=== PATIENT | male | born 1980 | race African-American/Black ===

== ENCOUNTER 2017-04-18 04:41 | Emergency (ER) | payer OTHER ==
[~2017-04-18] VITALS: Ht 190.5 cm; Wt 84.1 kg
[2017-04-18] MEDS ORDERED: OXYC10 PO (04:46)
[2017-04-18 04:48] VITALS: BP 121/87
== END 2017-04-18 05:33 | disposition home or self-care (01) ==
LOC: EMS 04:42
DX: S40.811A Abrasion of right upper arm, initial encounter (principal); I10 Essential (primary) hypertension; F12.10 Cannabis abuse, uncomplicated; F17.210 Nicotine dependence, cigarettes, uncomplicated; V48.4XXA Person boarding or alighting a car injured in noncollision transport accident, initial encounter; Y93.89 Activity, other specified; Y92.89 Other specified places as the place of occurrence of the external cause; Y99.8 Other external cause status
CPT/HCPCS: 99283